=== PATIENT | female | born 1980 | race Caucasian/White ===

== ENCOUNTER 2016-12-27 21:39 | Emergency (ER) | payer OTHER ==
[~2016-12-27] VITALS: Ht 175.3 cm; Wt 74.8 kg
[2016-12-27 21:53] VITALS: BP 133/89
[2016-12-27] MEDS ORDERED: LIDOCAINE 1%, 20ML ONE (22:56)
[2016-12-27] MEDS ORDERED: DIPH,PERTUSS(ACELL),TET VAC/PF 0.5 ML IM-VACC ONE ×2 (22:57→23:00)
[2016-12-27] MEDS ORDERED: LIDOCAINE 1%, 20ML SQ ONE (23:00)
[2016-12-27] MEDS ORDERED: BACITRACIN ZINC OINT 500U/GM, 0.9 GM ONE (23:39)
== END 2016-12-27 23:50 | disposition home or self-care (01) ==
LOC: ED 23:48
DX: S61.217A Laceration without foreign body of left little finger without damage to nail, initial encounter (principal); W26.0XXA Contact with knife, initial encounter; Y93.G1 Activity, food preparation and clean up; Y99.8 Other external cause status; Y92.099 Unspecified place in other non-institutional residence as the place of occurrence of the external cause
CPT/HCPCS: 12001; 90471; 90715; 99283; J3490

== ENCOUNTER → 2018-09-13 | Outpatient (CLI) | payer OTHER | END | disposition home or self-care (01) | LOC: EDBD 16:06 → RAD 16:06 | PROVIDERS: ATTEND Pediatrics | DX: Z02.9 Encounter for administrative examinations, unspecified (principal) ==

== ENCOUNTER 2018-09-14 18:24 | Outpatient (CLI) | payer OTHER | END 2018-09-14 23:59 | disposition home or self-care (01) | LOC: RAD 18:24 | PROVIDERS: ATTEND Specialist | DX: M41.9 Scoliosis, unspecified (principal) | CPT/HCPCS: 72082 ==